=== PATIENT | female | born 1955 | race Caucasian/White ===

== ENCOUNTER 2017-02-01 17:33 | Inpatient (IN) | payer MEDICARE, OTHER ==
[~2017-02-01] VITALS: Ht 162.6 cm; Wt 105.0 kg
[2017-02-01 18:08] LABS: HEMATOCRIT 40.8 % (34.6-47.8); HEMOGLOBIN 13.7 g/dL (11.7-16.4); WHITE BLOOD COUNT 12.5 x10^3/uL (3.4-10)
[2017-02-01 18:20] LABS: ASPARTATE AMINO TRANSFERASE 10 U/L (15-37); BLOOD UREA NITROGEN 17 mg/dL (7-18)
[2017-02-01] MEDS ORDERED: SODIUM CHLORIDE FLUSH 10ML SYR IVF ONE (18:30)
[2017-02-01] MEDS ORDERED: morphine SULFATE 10 MG/ML, 1ML ONE ×2 (18:52→20:00)
[2017-02-01] MEDS ORDERED: ONDANSETRON 2MG/ML, 2ML ONE (18:52)
[2017-02-01] MEDS ORDERED: ONDANSETRON 2MG/ML, 2ML IVPush ONE (19:00)
[2017-02-01] MEDS ORDERED: OMNIPAQUE 350 MG/ML, 100ML BOTTLE ONE (19:08)
[2017-02-01] MEDS: MORPHINE SULFATE 4 MG/ML, 1ML IVPush PRN ×2 (19:17→20:05)
[2017-02-01] MEDS ORDERED: HYDR-882 PO (20:03)
[2017-02-01] MEDS ORDERED: LEVO125T5 PO (20:03)
[2017-02-01] MEDS ORDERED: SODIUM CHLORIDE 0.9% 1,000 ML IV ONE (22:03)
[2017-02-01] MEDS ORDERED: SODIUM CHLORIDE FLUSH 10ML SYR IVF PRN (22:30)
[2017-02-01] MEDS ORDERED: ONDANSETRON 2MG/ML, 2ML IVPush PRN (23:00)
[2017-02-02] MEDS: MORPHINE SULFATE 4 MG/ML, 1ML IVPush PRN ×7 (00:01→23:00)
[2017-02-02] MEDS: D5%-0.45NACL+KCL 20MEQ 1,000 ML IV SCH ×3 (00:01→19:48)
[2017-02-02 02:54] VITALS: BP 150/80
[2017-02-02] MEDS ORDERED: MORPHINE SULFATE 4 MG/ML, 1ML ONE ×3 (03:39→11:54)
[2017-02-02 05:14] LABS: ASPARTATE AMINO TRANSFERASE 10 U/L (15-37); BLOOD UREA NITROGEN 14 mg/dL (7-18)
[2017-02-02 05:18] LABS: HEMOGLOBIN 13.1 g/dL (11.7-16.4); WHITE BLOOD COUNT 10.8 x10^3/uL (3.4-10)
[2017-02-02] MEDS ORDERED: LEVOTHYROXINE 100 MCG INJ IVPush SCH (06:00)
[2017-02-02 07:40] VITALS: BP 118/80
[2017-02-02] MEDS ORDERED: BISACODYL 10 MG SUPP PR SCH (09:00)
[2017-02-02] MEDS: FAMOTIDINE 20 MG/2 ML IVPush SCH ×2 (11:00)
[2017-02-02] MEDS ORDERED: ONDANSETRON 2MG/ML, 2ML IVPush PRN (12:00)
[2017-02-02 13:05] VITALS: BP 111/73
[2017-02-02 20:05] VITALS: BP 120/90
[2017-02-03] MEDS: MORPHINE SULFATE 4 MG/ML, 1ML IVPush PRN ×5 (02:23→20:10)
[2017-02-03] MEDS: FAMOTIDINE 20 MG/2 ML IVPush SCH ×3 (02:23→18:38)
[2017-02-03 03:12] VITALS: BP 101/68
[2017-02-03 05:27] LABS: HEMOGLOBIN 12.3 g/dL (11.7-16.4); WHITE BLOOD COUNT 9.1 x10^3/uL (3.4-10)
[2017-02-03 05:46] LABS: BLOOD UREA NITROGEN 12 mg/dL (7-18)
[2017-02-03] MEDS ORDERED: LEVOTHYROXINE 100 MCG INJ IVPush SCH (06:00)
[2017-02-03 07:18] VITALS: BP 144/89
[2017-02-03] MEDS: D5%-0.45NACL+KCL 20MEQ 1,000 ML IV SCH (07:53)
[2017-02-03] MEDS ORDERED: BISACODYL 10 MG SUPP PR SCH (09:00)
[2017-02-03] MEDS ORDERED: MIDAZOLAM 1 MG/ML, 2ML ONE ×2 (12:53→19:40)
[2017-02-03] MEDS ORDERED: FENTANYL PF 100 MCG/2ML ONE ×4 (12:53→19:40)
[2017-02-03 13:58] VITALS: BP 114/79
[2017-02-03] MEDS ORDERED: BUPIVACAINE/PF 0.5% ONE (14:01)
[2017-02-03] MEDS ORDERED: EPINEPHRINE 1 MG/ML, 1ML ONE (14:01)
[2017-02-03] MEDS ORDERED: ONDANSETRON 2MG/ML, 2ML ONE (15:22)
[2017-02-03] MEDS ORDERED: NEOSTIGMINE 1 MG/ML, 10ML ONE ×2 (15:22→18:36)
[2017-02-03] MEDS ORDERED: DEXAMETHASONE 4 MG/ML, 1ML ONE (15:22)
[2017-02-03] MEDS ORDERED: PROPOFOL 10 MG/ML, 20ML ONE (15:22)
[2017-02-03] MEDS ORDERED: BUPIVACAINE/PF-EPI 0.5% 1:200K IM ONE (15:22)
[2017-02-03] MEDS ORDERED: CEFAZOLIN 1,000 MG ONE (15:22)
[2017-02-03] MEDS ORDERED: SUCCINYLCHOLINE 20 MG/ML, 10ML ONE (15:22)
[2017-02-03] MEDS ORDERED: ROCURONIUM 10 MG/ML ONE (15:22)
[2017-02-03] MEDS ORDERED: HYDROmorphone 1 MG/ML, 1ML IV PRN ×2 (16:00→20:00)
[2017-02-03] MEDS ORDERED: hydrALAzine 20 MG/ML, 1ML IV PRN ×2 (16:00→20:00)
[2017-02-03] MEDS ORDERED: LABETALOL 5MG/ML, 20ML IV PRN ×2 (16:00→20:00)
[2017-02-03] MEDS ORDERED: ACETAMINOPHEN 325 MG TABLET PO PRN ×2 (16:00→20:00)
[2017-02-03] MEDS ORDERED: ONDANSETRON 2MG/ML, 2ML IVPush PRN ×2 (16:00→20:00)
[2017-02-03] MEDS ORDERED: OXYcodone 5 MG/5 ML ORAL.SOL UDC PO PRN ×2 (16:00→20:00)
[2017-02-03] MEDS ORDERED: METOCLOPRAMIDE 5 MG/ML, 2ML IV PRN (16:00)
[2017-02-03] MEDS ORDERED: GLYCOPYRROLATE 0.4 MG/2 ML, 2ML ONE (18:36)
[2017-02-03] MEDS: MIDAZOLAM 1 MG/ML, 2ML IV PRN ×2 (19:35→19:45)
[2017-02-03] MEDS ORDERED: HYDROmorphone 1 MG/ML, 1ML ONE (19:39)
[2017-02-03] MEDS: FENTANYL PF 100 MCG/2ML IV PRN ×2 (19:40→19:50)
[2017-02-03] MEDS ORDERED: PROMETHAZINE 25 MG/ML, 1ML IV PRN (20:00)
[2017-02-03] MEDS ORDERED: MEPERIDINE/PF 25MG/0.5ML IVPush PRN (20:00)
[2017-02-03] MEDS ORDERED: FENTANYL PF 100 MCG/2ML IV PRN (20:00)
[2017-02-03] MEDS ORDERED: MORPHINE SULFATE 4 MG/ML, 1ML ONE (20:11)
[2017-02-03] MEDS ORDERED: OXYcodone 5 MG/5 ML ORAL.SOL UDC ONE (20:30)
[2017-02-03 21:26] VITALS: BP 141/93
[2017-02-03] MEDS ORDERED: ONDANSETRON 2MG/ML, 2ML IV PRN (21:30)
[2017-02-03] MEDS ORDERED: D5%-0.45NACL+KCL 20MEQ 1,000 ML IV SCH (21:30)
[2017-02-03] MEDS ORDERED: FAMOTIDINE 20 MG/2 ML IVPush SCH (21:30)
[2017-02-03] MEDS: morphine SULFATE 10 MG/ML, 1ML IV PRN (22:09)
[2017-02-04 00:10] VITALS: BP 111/68
[2017-02-04] MEDS: morphine SULFATE 10 MG/ML, 1ML IV PRN ×3 (00:23→06:39)
[2017-02-04 04:50] VITALS: BP 114/72
[2017-02-04 07:46] VITALS: BP 111/75
[2017-02-04] MEDS ORDERED: LEVOTHYROXINE 100 MCG INJ IV SCH (09:00)
[2017-02-04] MEDS: SODIUM CHLORIDE FLUSH 10ML SYR IVF SCH ×2 (09:00→21:00)
[2017-02-04 09:12] LABS: HEMATOCRIT 37.2 % (34.6-47.8); HEMOGLOBIN 12.4 g/dL (11.7-16.4); WHITE BLOOD COUNT 12.9 x10^3/uL (3.4-10)
[2017-02-04 09:21] LABS: BLOOD UREA NITROGEN 8 mg/dL (7-18)
[2017-02-04] MEDS: FAMOTIDINE 20 MG TABLET PO SCH ×2 (09:40→20:49)
[2017-02-04] MEDS: LEVOTHYROXINE 125 MCG TABLET PO SCH (09:44)
[2017-02-04] MEDS ORDERED: morphine SULFATE 10 MG/ML, 1ML IV PRN (10:30)
[2017-02-04] MEDS: BISACODYL 10 MG SUPP PR SCH (11:04)
[2017-02-04 13:28] VITALS: BP 102/68
[2017-02-04] MEDS: ENOXAPARIN 30 MG/0.3 ML SQ SCH (14:05)
[2017-02-04 19:13] VITALS: BP 145/88
[2017-02-05 00:58] VITALS: BP 122/75
[2017-02-05] MEDS: ENOXAPARIN 30 MG/0.3 ML SQ SCH ×2 (01:45→14:52)
[2017-02-05] MEDS: LEVOTHYROXINE 125 MCG TABLET PO SCH (05:12)
[2017-02-05 08:10] VITALS: BP 113/73
[2017-02-05] MEDS: SODIUM CHLORIDE FLUSH 10ML SYR IVF SCH (09:19)
[2017-02-05] MEDS: FAMOTIDINE 20 MG TABLET PO SCH (09:19)
[2017-02-05] MEDS: BISACODYL 10 MG SUPP PR SCH (09:19)
[2017-02-05 13:18] VITALS: BP 111/64
[2017-02-05 17:00] VITALS: BP 135/76
== END 2017-02-05 17:10 | disposition home or self-care (01) | DRG 354 ==
LOC: ED 21:58 → UNDOADMIN 22:03 → EDIP 22:03 → 4NOR 22:03 → ED 22:06 → 4NOR 22:39 → EDIP 22:39
PROVIDERS: ADMIT Surgery; ATTEND Surgery
PROC: 8E0W4CZ Robotic Assisted Procedure of Trunk Region, Percutaneous Endoscopic Approach (ICD-10-PCS; 2017-02-03)
PROC: 0WUF4JZ Supplement Abdominal Wall with Synthetic Substitute, Percutaneous Endoscopic Approach (ICD-10-PCS; principal; 2017-02-03 14:00)
DX: K43.6 Other and unspecified ventral hernia with obstruction, without gangrene (principal); E44.0 Moderate protein-calorie malnutrition; G83.9 Paralytic syndrome, unspecified; K66.8 Other specified disorders of peritoneum; D72.829 Elevated white blood cell count, unspecified; E66.9 Obesity, unspecified; E03.9 Hypothyroidism, unspecified; F17.210 Nicotine dependence, cigarettes, uncomplicated; G89.29 Other chronic pain; M26.629 Arthralgia of temporomandibular joint, unspecified side; I10 Essential (primary) hypertension; K80.20 Calculus of gallbladder without cholecystitis without obstruction; Z79.891 Long term (current) use of opiate analgesic; Z68.39 Body mass index [BMI] 39.0-39.9, adult; Z85.3 Personal history of malignant neoplasm of breast; Z85.850 Personal history of malignant neoplasm of thyroid; Z90.12 Acquired absence of left breast and nipple; Z90.13 Acquired absence of bilateral breasts and nipples
CPT/HCPCS: 36415; 71010; 74177; 80048; 80053; 82962; 85025; 85610; 86850; 86900; 86923; 93005; 96374; 96375; 96376; J0171; J0690; J1100; J1650; J2250; J2405; J2704; J2710; J3010; J3490; Q9967; C1781; J0330; J2270; J3480; J7030; S0028

== ENCOUNTER 2018-06-03 10:26 | Emergency (ER) | payer MEDICARE ==
[~2018-06-03] VITALS: Ht 162.6 cm; Wt 100.0 kg
[~2018-06-03 10:26] MED LIST: HYDR-3653 PO; LEVO125T5 PO
--- NOTE | 2018-06-03 10:49 | NUR ---
PT TAKEN TO XRAY VIA WHEELCHAIR WITH TECH, THEN TO TR01.
--- NOTE | 2018-06-03 10:53 | NUR ---
AROUND 9:15 AND 9:30 PT HAD RIGHT SIDE NUMBNESS, RIGHT FACIAL DROOP, VISUAL CHANGE, AND WAS WALKING SIDEWAYS DOWN THE HIGHTOWER. REPORTS SYMPTOMS NOW GONE. PT HAS A NORMAL RIGHT FACIAL DROOP FROM JOINT REPLACEMENT IN [place]. PT IS ALERT, ORIENTED, WITH NAD. THIS HAS HAPPEND 3 TIMES IN 1 MONTH.
--- NOTE | 2018-06-03 11:09 | NUR ---
PT REPORTS THAT SHE FEELS FINE AND EVERYTHING HAS RESOLVED EXCEPT HER RIGHT EYE LID IS MORE DROOPY THAN USUAL. SON IN LAW AT BEDSIDE. CALL LIGHT WITHIN REACH.
--- NOTE | 2018-06-03 11:23 | NUR ---
lab at bedside.
[2018-06-03 11:38] LABS: BASOPHILS # (AUTO) 0.06 x10^3/uL (0-0.1); BASOPHILS % (AUTO) 1 % (0-1); EOSINOPHILS % (AUTO) 1 % (1-7); LYMPHOCYTES # (AUTO) 1.29 x10^3/uL (1-3.4); LYMPHOCYTES % (AUTO) 9 % (22-44); MD NO; MEAN CORPUSCULAR HEMOGLOBIN 29.4 pg (27.0-34.8); MEAN CORPUSCULAR HGB CONC 32.4 g/dL (32.4-35.8); MEAN CORPUSCULAR VOLUME 90.7 fL (80-100); MEAN PLATELET VOLUME 8.8 fL (7.4-10.4); MONOCYTES # (AUTO) 0.67 x10^3/uL (0.2-0.8); MONOCYTES % (AUTO) 5 % (2-9); NEUTROPHILS % (AUTO) 84 % (42-75); PLATELET COUNT 481 x10^3/uL (130-400); RED BLOOD COUNT 4.15 x10^6/uL (3.82-5.3); RED CELL DISTRIBUTION WIDTH 14.1 % (9.6-15.2)
[2018-06-03 11:48] LABS: INTERNATIONAL NORMALIZED RATIO 0.99 (0.93-1.1); PROTHROMBIN TIME 10.5 Seconds (9.6-11.5)
[2018-06-03 11:50] LABS: ALANINE AMINOTRANSFERASE 18 U/L (12-78); ANION GAP 7 mmol/L (5-15); CALCIUM 8.6 mg/dL (8.5-10.1); CHLORIDE 106 mmol/L (98-107); CREATININE 0.92 mg/dL (0.55-1.02)
[2018-06-03 11:53] LABS: ALKALINE PHOSPHATASE 115 U/L (45-117); BILIRUBIN,TOTAL 0.3 mg/dL (0.2-1.0); TOTAL PROTEIN 7.7 g/dL (6.4-8.2)
--- NOTE | 2018-06-03 12:05 | NUR ---
Pt off the floor to radiology.
--- NOTE | 2018-06-03 12:31 | NUR ---
PT IS BACK FROM RADIOLOGY. PT IS ALERT, ORIENTED, WITH NAD. PT IS CONNECTED TO THE MONITOR. CALL LIGHT WITHIN REACH. FAMILY AT BEDSIDE.
--- NOTE | 2018-06-03 14:05 | NUR ---
Pt ambulated to the bathroom with steady gait.
[2018-06-03 14:06] VITALS: BP 119/58
--- NOTE | 2018-06-03 14:23 | NUR ---
Patient given discharge instructions and they have confirmed that they understand the instructions. Patient ambulatory with steady gait.
== END 2018-06-03 14:25 | disposition home or self-care (01) ==
LOC: ED 14:05
DX: G51.0 Bell's palsy (principal); H53.9 Unspecified visual disturbance; I10 Essential (primary) hypertension; F17.200 Nicotine dependence, unspecified, uncomplicated; Z98.890 Other specified postprocedural states; Z90.89 Acquired absence of other organs; Z90.10 Acquired absence of unspecified breast and nipple
CPT/HCPCS: 36415; 70450; 70551; 80053; 85025; 85610; 85730; 93005; 99284

== ENCOUNTER 2018-08-03 10:51 | Inpatient (IN) | payer MEDICARE ==
[~2018-08-03] VITALS: Ht 161.3 cm; Wt 99.4 kg
[2018-08-03] VITALS (7 sets, daily range): BP systolic 100–121; BP diastolic 64–82
--- NOTE | 2018-08-03 10:53 | NUR ---
PATIENT ARRIVES TO ED BIB EMS FOR CHEST AND HEAD PRESSURE FOR 1.5 HOURS. PATIENT WAS WALKING HER GRANDKIDS TO THE BUS STOP AND STARTED HAVING PRESSURE. PATIENT STATES HX OF HTN AND WHEN SHE GETS THIS FEELING SHE TAKES MORE AMLODIPINE AND IT USUALLY GOES AWAY (THE PAIN). PATIENT STATES THE PAIN DIDN'T GO AWAY THIS TIME. PATIENT ARRIVES AOX4, ABLE TO COMPLETE FULL SENTENCES DENIES ANY CHEST PAIN RIGHT NOW. CONTINUOUS MONITORING BLOOD PRESSURE, AND VSS. EKG COMPLETED. PATIENT WITH HISTORY OF CANCER, HERNIA AND BELLS PALSY.
--- NOTE | 2018-08-03 11:03 | NUR ---
REPORT GIVEN TO FLOOR RNTOSIN.
[2018-08-03] MEDS ORDERED: AMLO10TA8 PO (11:04)
[2018-08-03] MEDS ORDERED: LISI-167 PO (11:04)
[2018-08-03 11:21] LABS: BASOPHILS # (AUTO) 0.12 x10^3/uL (0-0.1); BASOPHILS % (AUTO) 1 % (0-1); EOSINOPHILS # (AUTO) 0.16 x10^3/uL (0-0.4); EOSINOPHILS % (AUTO) 2 % (1-7); LYMPHOCYTES % (AUTO) 17 % (22-44); MD NO; MEAN CORPUSCULAR HEMOGLOBIN 29.8 pg (27.0-34.8); MEAN CORPUSCULAR HGB CONC 33.7 g/dL (32.4-35.8); MEAN CORPUSCULAR VOLUME 88.3 fL (80-100); MEAN PLATELET VOLUME 9.2 fL (7.4-10.4); MONOCYTES # (AUTO) 0.44 x10^3/uL (0.2-0.8); MONOCYTES % (AUTO) 5 % (2-9); NEUTROPHILS # (AUTO) 6.72 x10^3/uL (1.8-6.8); NEUTROPHILS % (AUTO) 75 % (42-75); PLATELET COUNT 408 x10^3/uL (130-400); RED BLOOD COUNT 4.44 x10^6/uL (3.82-5.3); RED CELL DISTRIBUTION WIDTH 14.3 % (9.6-15.2)
[2018-08-03 11:29] LABS: ALBUMIN 3.4 g/dL (3.4-5.0); ANION GAP 8 mmol/L (5-15); CALCIUM 9.1 mg/dL (8.5-10.1); CHLORIDE 107 mmol/L (98-107)
[2018-08-03 11:32] LABS: TROPONIN I < 0.015 ng/mL (0.000-0.045)
[2018-08-03 11:38] LABS: T4 (THYROXINE) 12.7 mcg/dL (4.8-13.9)
[2018-08-03 12:09] LABS: ALANINE AMINOTRANSFERASE 22 U/L (12-78)
[2018-08-03 12:11] LABS: ALKALINE PHOSPHATASE 121 U/L (45-117); BILIRUBIN,TOTAL 0.3 mg/dL (0.2-1.0); TOTAL PROTEIN 7.9 g/dL (6.4-8.2)
--- NOTE | 2018-08-03 12:40 | NUR ---
PT UP TO RESTROOM WITH A STEADY GAIT. PT STATES I FEEL GREAT. PT EDUCATED ON THE IMPORTANCE OF FOLLOW UP AND MORE TESTING. PT AGREES WITH POC AT THIS TIME.
[2018-08-03] MEDS ORDERED: HYDR-3653 PO (13:57)
[2018-08-03] MEDS ORDERED: ACETAMINOPHEN 325 MG TABLET PO PRN (14:00)
[2018-08-03 14:44] LABS: CHOLESTEROL, TOTAL 321 mg/dL (140-239); TRIGLYCERIDES 148 mg/dL (50-200); VLDL CHOLESTEROL 30 mg/dL (0-25)
[2018-08-03 14:47] LABS: CHOL/HDL RATIO 5.8; HDL CHOL % 17 % (28-40); HDL CHOLESTEROL (DIRECT) 55 mg/dL (40-60); LDL CHOLESTEROL,CALCULATED 236 mg/dL (54-169); LDL/HDL RATIO 4.3 (0.5-3.0); TROPONIN I < 0.015 ng/mL (0.000-0.045)
[2018-08-03] MEDS: HEPARIN 5,000 UNITS/ML, 1ML SQ SCH (15:50)
[2018-08-03 20:47] LABS: TROPONIN I < 0.015 ng/mL (0.000-0.045)
[2018-08-03] MEDS: SODIUM CHLORIDE FLUSH 10ML SYR IVF SCH (21:04)
[2018-08-04] VITALS (9 sets, daily range): BP systolic 96–122; BP diastolic 62–82
[2018-08-04] MEDS: HEPARIN 5,000 UNITS/ML, 1ML SQ SCH ×3 (00:48→18:14)
[2018-08-04] MEDS: ASPIRIN 81 MG TABLET EC PO SCH (05:39)
[2018-08-04 06:11] LABS: BASOPHILS # (AUTO) 0.11 x10^3/uL (0-0.1); BASOPHILS % (AUTO) 1 % (0-1); EOSINOPHILS # (AUTO) 0.26 x10^3/uL (0-0.4); EOSINOPHILS % (AUTO) 3 % (1-7); LYMPHOCYTES # (AUTO) 2.07 x10^3/uL (1-3.4); LYMPHOCYTES % (AUTO) 25 % (22-44); MD NO; MEAN CORPUSCULAR HGB CONC 32.4 g/dL (32.4-35.8); MEAN CORPUSCULAR VOLUME 89.6 fL (80-100); MEAN PLATELET VOLUME 9.5 fL (7.4-10.4); MONOCYTES # (AUTO) 0.41 x10^3/uL (0.2-0.8); MONOCYTES % (AUTO) 5 % (2-9); NEUTROPHILS # (AUTO) 5.58 x10^3/uL (1.8-6.8); NEUTROPHILS % (AUTO) 66 % (42-75); PLATELET COUNT 379 x10^3/uL (130-400); RED BLOOD COUNT 4.19 x10^6/uL (3.82-5.3); RED CELL DISTRIBUTION WIDTH 14.5 % (9.6-15.2)
[2018-08-04 06:16] LABS: ALBUMIN 3.4 g/dL (3.4-5.0); ANION GAP 5 mmol/L (5-15); CALCIUM 8.9 mg/dL (8.5-10.1); CHLORIDE 110 mmol/L (98-107)
[2018-08-04 06:20] LABS: ALANINE AMINOTRANSFERASE 22 U/L (12-78); ALKALINE PHOSPHATASE 116 U/L (45-117); BILIRUBIN,TOTAL 0.3 mg/dL (0.2-1.0); CREATININE 0.83 mg/dL (0.55-1.02); TOTAL PROTEIN 7.4 g/dL (6.4-8.2)
[2018-08-04] MEDS ORDERED: REGADENOSON 0.4 MG/5 ML SYRINGE ONE (08:30)
[2018-08-04] MEDS: SODIUM CHLORIDE FLUSH 10ML SYR IVF SCH ×2 (09:00→20:34)
[2018-08-04] MEDS ORDERED: ATORVASTATIN 40 MG TABLET PO SCH (21:00)
[2018-08-05] MEDS: HEPARIN 5,000 UNITS/ML, 1ML SQ SCH ×3 (00:02→16:39)
[2018-08-05 00:47] VITALS: BP 114/74
[2018-08-05 00:48] VITALS: BP_SYST 102; BP_SYST 108; BP_DIAS 71; BP_DIAS 75
[2018-08-05] MEDS: ASPIRIN 81 MG TABLET EC PO SCH (06:02)
[2018-08-05 06:39] VITALS: BP 130/83
[2018-08-05] MEDS ORDERED: FUROSEMIDE 20 MG/2 ML IV ONE (08:00)
[2018-08-05] MEDS: SODIUM CHLORIDE FLUSH 10ML SYR IVF SCH (08:39)
[2018-08-05] MEDS ORDERED: ATOR40TA78 PO (12:02)
[2018-08-05] MEDS ORDERED: ASPI81TA45 PO (12:02)
[2018-08-05 13:02] VITALS: BP 135/84
[2018-08-05 13:50] VITALS: BP 114/79
[2018-08-05 13:50] LABS: TROPONIN I < 0.015 ng/mL (0.000-0.045)
[2018-08-05 16:10] LABS: TROPONIN I < 0.015 ng/mL (0.000-0.045)
== END 2018-08-05 17:01 | disposition home or self-care (01) | DRG 918 ==
LOC: ED 13:07 → EDIP 13:11 → 5SO 14:29 → DCLOUNGE 08-05 16:48
PROVIDERS: ADMIT Internal Medicine; ATTEND Internal Medicine
DX: T46.1X1A Poisoning by calcium-channel blockers, accidental (unintentional), initial encounter (principal); J81.1 Chronic pulmonary edema; E66.9 Obesity, unspecified; E78.5 Hyperlipidemia, unspecified; Z68.38 Body mass index [BMI] 38.0-38.9, adult; G89.29 Other chronic pain; R51 Headache; K59.09 Other constipation; F17.210 Nicotine dependence, cigarettes, uncomplicated; F40.240 Claustrophobia; I10 Essential (primary) hypertension; E03.9 Hypothyroidism, unspecified; Z85.850 Personal history of malignant neoplasm of thyroid; Z85.3 Personal history of malignant neoplasm of breast; Y92.89 Other specified places as the place of occurrence of the external cause; Z79.82 Long term (current) use of aspirin; Z79.891 Long term (current) use of opiate analgesic; Z82.49 Family history of ischemic heart disease and other diseases of the circulatory system; Z90.13 Acquired absence of bilateral breasts and nipples; Z98.891 History of uterine scar from previous surgery
CPT/HCPCS: 36415; 71045; 71046; 74176; 78452; 80053; 80061; 83036; 83690; 83735; 84436; 84443; 84481; 84484; 85025; 93005; 93306; 96374; 99285; G0378; J1644; J2785; A9502; C9898; J1940